=== PATIENT | female | born 1935 | race Caucasian/White ===

== ENCOUNTER 2018-03-03 12:09 | Day surgery (SDC) | payer MEDICARE, BC ==
[~2018-03-03] VITALS: Ht 170.2 cm; Wt 62.5 kg
[2018-03-03 13:27] VITALS: BP 135/71; PULSE 98; TEMP 98.3
[2018-03-03] MEDS ORDERED: PRINIVIL40 MG PO (13:39)
[2018-03-03] MEDS ORDERED: SYNTHROID0.075 MG/T PO (13:39)
[2018-03-03] MEDS ORDERED: WOMEN'S DAILY1 TAB PO (13:40)
[2018-03-03] MEDS ORDERED: LOPRESSOR 550 MG/TAB PO (13:40)
[2018-03-03] MEDS ORDERED: VITAMIN B COMPL1 SGL PO (13:41)
[2018-03-03] MEDS ORDERED: PREDNISONE20 MG PO (13:42)
[2018-03-03] MEDS ORDERED: CALCIUM CARBON650 M2 PO (13:43)
[2018-03-03] MEDS ORDERED: NORVASC 10MG10 MG PO (13:43)
[2018-03-03] MEDS ORDERED: OMEGA-3 1000 MG1 CAP PO (13:44)
[2018-03-03] MEDS ORDERED: ASPIRIN 32325 MG/TA1 PO (13:45)
[2018-03-03] MEDS ORDERED: PROBIOTIC-SUNMARK PO (13:46)
[2018-03-03] MEDS ORDERED: NEURONTIN300 MG/CAP PO (13:46)
[2018-03-03] MEDS ORDERED: ULTRAM 50MG TAB50 MG PO (13:47)
[2018-03-03] MEDS ORDERED: LEADER FIBER1 POW PO (13:47)
[2018-03-03] MEDS ORDERED: PRILOSEC 20MG20 MG (14:20)
[2018-03-03 14:50] VITALS: BP 153/89; PULSE 100; TEMP 97.6
[2018-03-03 15:05] VITALS: BP 146/93; PULSE 91
[2018-03-03 15:20] VITALS: BP 164/98; PULSE 100
[2018-03-03 15:35] VITALS: BP 160/107; PULSE 95
[2018-03-03 15:50] VITALS: BP 171/90; PULSE 88
== END 2018-03-03 16:25 | disposition home or self-care (01) ==
LOC: SDCO 12:09
DX: D12.4 Benign neoplasm of descending colon (principal); K57.30 Diverticulosis of large intestine without perforation or abscess without bleeding; K21.0 Gastro-esophageal reflux disease with esophagitis; K59.00 Constipation, unspecified; I10 Essential (primary) hypertension; F17.210 Nicotine dependence, cigarettes, uncomplicated; Z88.1 Allergy status to other antibiotic agents; Z88.0 Allergy status to penicillin; Z88.2 Allergy status to sulfonamides; Z79.82 Long term (current) use of aspirin; Z79.51 Long term (current) use of inhaled steroids; Z90.710 Acquired absence of both cervix and uterus; Z90.49 Acquired absence of other specified parts of digestive tract
CPT/HCPCS: J2704; J7030